=== PATIENT | female | born 1960 | race Caucasian/White ===

== ENCOUNTER 2022-12-18 17:37 | Emergency (ER) | payer OTHER, SELFPAY ==
[2022-12-18 17:50] VITALS: BP 153/80; PULSE 78; RESP 16; TEMP 36.3; O2SAT 99; BMI 21.1
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
--- NOTE | 2022-12-18 18:35 | RAD_ITS ---
INDICATION: Trauma EXAMINATION/TECHNIQUE: X-RAY - XR Sternum Min 2 Views COMPARISON: None. FINDINGS: Anterior cortical disruption of the sternum compatible with fracture without significant displacement. Visualized sternoclavicular joints are grossly intact on the submitted images. This patient also does have some thoracic compression deformities with mild loss of height, age indeterminate. These could be chronic. RAD/Sternum min 2 Views IMPRESSION: Findings suggesting acute sternal fracture. Electronically Signed: Casey Maravilla MD at 18:50 EDT ,
--- NOTE | 2022-12-18 18:35 | RAD_ITS ---
INDICATION: Trauma EXAMINATION/TECHNIQUE: X-RAY - XR Chest 2 Views COMPARISON: None. FINDINGS: Cardiac silhouette and mediastinal contours are normal in size. No obvious mediastinal hematoma. There is no focal airspace consolidation definitively identified. No pneumothorax. No rib fracture. Compression deformity suggested at T7 and T8 however these may be chronic. There is mild to moderate upper to mid thoracic spine intervertebral disc narrowing. Subtle sternal fracture on lateral view. RAD/Chest PA and Lateral IMPRESSION: Sternal fracture. Clear lungs. Electronically Signed: Casey Maravilla MD at 18:52 EDT ,
[2022-12-18 19:40] VITALS: BP 119/64; PULSE 75; RESP 18; O2SAT 100
== END 2022-12-18 19:50 | disposition home or self-care (01) ==
PROVIDERS: Emergency Provider Emergency Medicine; Visit Provider Emergency Medicine
DX: S22.20XA Unspecified fracture of sternum, initial encounter for closed fracture (principal); V43.52XA Car driver injured in collision with other type car in traffic accident, initial encounter
CPT/HCPCS: 71046; 71120; 99283